=== PATIENT | female | born 1940 | race Caucasian/White ===

== ENCOUNTER 2020-06-26 13:59 | Outpatient (REF) | payer MEDICARE, SELFPAY | END 2020-06-26 14:00 | disposition home or self-care (01) | LOC: HO.HOSX 13:59 | PROVIDERS: Visit Provider Orthopaedic Surgery | DX: Z13.89 Encounter for screening for other disorder (principal) ==

== ENCOUNTER 2020-06-27 10:47 | Outpatient (REF) | payer MEDICARE, SELFPAY ==
--- NOTE | ~2020-06-27 | XR_ITS ---
EXAMINATION: CR X-RAY KNEE RIGHT 2 VIEW, KNEE STANDING BILATERAL CLINICAL INFORMATION: Right knee arthroplasty, pain, follow-up. COMPARISON: 05/05/2019 the radiographs. TECHNIQUE: 2 views of the right knee and bilateral knees standing view. FINDINGS: The patient is status post right knee arthroplasty showing good anatomic alignment with no evidence for hardware malfunction. Trace suprapatellar joint fluid is seen. There is no acute fracture or dislocation. Moderate to severe left knee degenerative joint changes are seen most pronounced in the medial femoral-tibial compartment. Prominent varicosities overlie the left medial soft tissues most pronounced in the calf. XR/XR knee standing BI IMPRESSION: 1. No right knee hardware abnormality. No acute fracture or significant change. 2. Moderate to severe left knee degenerative joint changes most consistent with osteoarthritis without significant change.
--- NOTE | ~2020-06-27 | XR_ITS ---
EXAMINATION: CR X-RAY KNEE RIGHT 2 VIEW, KNEE STANDING BILATERAL CLINICAL INFORMATION: Right knee arthroplasty, pain, follow-up. COMPARISON: 05/05/2019 the radiographs. TECHNIQUE: 2 views of the right knee and bilateral knees standing view. FINDINGS: The patient is status post right knee arthroplasty showing good anatomic alignment with no evidence for hardware malfunction. Trace suprapatellar joint fluid is seen. There is no acute fracture or dislocation. Moderate to severe left knee degenerative joint changes are seen most pronounced in the medial femoral-tibial compartment. Prominent varicosities overlie the left medial soft tissues most pronounced in the calf. XR/XR knee RT 2V IMPRESSION: 1. No right knee hardware abnormality. No acute fracture or significant change. 2. Moderate to severe left knee degenerative joint changes most consistent with osteoarthritis without significant change.
== END 2020-06-27 10:48 | disposition home or self-care (01) ==
LOC: HO.HOSX 10:47
PROVIDERS: PCP Physician Assistant; Visit Provider Orthopaedic Surgery
DX: Z47.1 Aftercare following joint replacement surgery (principal); Z96.651 Presence of right artificial knee joint
CPT/HCPCS: 73560; 73565; 99212